=== PATIENT | male | born 1965 | race Caucasian/White ===

== ENCOUNTER 2020-05-18 05:12 | Emergency (ER) | payer MEDICAID ==
[2020-05-18] MEDS ORDERED: Sodium Chloride 0.9% 1,000 ML IV SCH (05:45)
[2020-05-18] MEDS ORDERED: Ondansetron 4 MG/2 ML SDV IVPUSH ONE (05:46)
[2020-05-18] MEDS ORDERED: HYDROmorphone 1 MG/ML Syringe IVPUSH ONE (05:46)
--- NOTE | 2020-05-18 05:54 | EDM.PDOC ---
<NolanrAndrea - Last Filed: 05/18/20 10:50> ED HPI GENERAL MEDICAL PROBLEM - General Chief Complaint: General Stated Complaint: LOWER ABD PAIN Time Seen by Provider: 05/18/20 05:49 - Related Data Allergies Allergy/AdvReac Type Severity Reaction Status Date / Time No Known Allergies Allergy Verified 05/18/20 05:20 Home Meds: Home Meds Gabapentin [Neurontin] 300 mg PO TID 05/18/20 [History] Omeprazole 20 mg PO ACBREAKFAST 05/18/20 [History] Departure - Departure Time of Disposition: 10:54 Disposition: Home, Self-Care 01 Condition: Fair Clinical Impression: Left testicular pain - Discharge Information Instructions: Testicular Self-Exam, Pain Without a Known Cause Referrals: PCP,None [Primary Care Provider] - Forms: ED Department Discharge Additional Instructions: Use hydrocodone as needed for pain control, please follow-up with your primary care in the next 2 to 3 days for reevaluation include consultation with urology, recommend follow-up ultrasound for further evaluation of the left testicle call or return to the emergency department worsening of symptoms - Assessment/Plan Plan: Took over care from Dr. Hunt at [address] pending results of CT scan, CT scan was unrevealing for stone reexamination the patient after pain medications still had extremely painful left testicle pain was worse on elevation underwent ultrasound of scrotal contents also unrevealing differential still broad. Provided further pain medication of fentanyl while in the ED. Assessment Acuity = acute Site and laterality = left testicular pain Etiology = unknown Manifestations = none Location of injury = Home Lab values = WBC elevated 12.5 consistent leukocytosis, potassium low at 2.9 consistent hypokalemia this was corrected both IV and orally, urinalysis unremarkable, CT and ultrasound unrevealing for etiology of pain Plan I did discuss options with him recommend follow-up with primary care for further evaluation with consultation to urology as well as repeat ultrasound I did provide him both a copy of his CT scan and ultrasound reports prescription written for hydrocodone 5/325 1 tab p.o. 3 times daily as needed total #10 This note was dictated using [employer] voice recognition software please call with any questions on syntax or grammar. <Hawa Hunt - Last Filed: 05/21/20 07:17> ED HPI GENERAL MEDICAL PROBLEM - General Source of Information: Reports: Patient History Limitations: Reports: No Limitations - History of Present Illness INITIAL COMMENTS - FREE TEXT/NARRATIVE: pt started having pain on Sunday nite on and off. It did start in the back and it has now radiated to the left testicle. He has not had a fever. He does not have a history of a kidney stone in the past. He states the pain tonight has gotten very severe. He has not vomited. Onset: Other (pain is alot worse tonight. ) Duration: Hour(s): Location: Reports: Abdomen, Back, Other ( radiates to the left groin) Left Scrotum Pain Score (Numeric/FACES): 9 Past Medical History HEENT History: Reports: Impaired Vision Gastrointestinal History: Reports: None Genitourinary History: Reports: None Musculoskeletal History: Reports: None - Past Surgical History Head Surgeries/Procedures: Reports: None HEENT Surgical History: Reports: None GI Surgical History: Reports: Appendectomy, Cholecystectomy Male Surgical History: Reports: Vasectomy Musculoskeletal Surgical History: Reports: Other (See Below) Other Musculoskeletal Surgeries/Procedures:: left ankle Dermatological Surgical History: Reports: None Social & Family History - Tobacco Use Smoking Status *Q: Current Every Day Smoker Years of Tobacco use: 40 Packs/Tins Daily: 1.5 Used Tobacco, but Quit: No Second Hand Smoke Exposure: No - Caffeine Use Caffeine Use: Reports: Coffee, Soda - Alcohol Use Days Per Week of Alcohol Use: 3 Number of Drinks Per Day: 2 Total Drinks Per Week: 6 - Recreational Drug Use Recreational Drug Use: No ED ROS GENERAL - Review of Systems Review Of Systems: See Below Constitutional: Reports: No Symptoms HEENT: Reports: No Symptoms Respiratory: Reports: No Symptoms Cardiovascular: Reports: No Symptoms Endocrine: Reports: No Symptoms GI/Abdominal: Reports: Abdominal Pain, Other ( radiates to the left groin. ) : Reports: Flank Pain Musculoskeletal: Reports: No Symptoms Skin: Reports: No Symptoms Neurological: Reports: No Symptoms Psychiatric: Reports: No Symptoms ED EXAM, GENERAL - Physical Exam Exam: See Below Free Text/Narrative:: pt arrived very uncomfortable in the left flank radiating to the ledft groin. No dysuria. Pain started Sunday nit but got very severe tonight. Exam Limited By: No Limitations General Appearance: Alert, Anxious, Severe Distress Ears: Normal TMs Nose: Normal Inspection Throat/Mouth: Normal Inspection Head: Atraumatic Neck: Normal Inspection Respiratory/Chest: No Respiratory Distress Cardiovascular: Regular Rate, Rhythm GI/Abdominal: Soft, Other ( tender low in the left groin. Pain does radiate to the left testicle. ) Rectal (Males) Exam: Deferred Back Exam: CVA Tenderness (L) Extremities: Normal Inspection Neurological: Alert, Oriented, Normal Cognition Psychiatric: Normal Affect Course - Vital Signs Last Recorded V/S: Last Vital Signs Temp 36.6 C 05/18/20 08:15 Pulse 63 05/18/20 08:15 Resp 16 05/18/20 08:15 BP 154/91 H 05/18/20 08:15 Pulse Ox 96 05/18/20 08:15 - Orders/Labs/Meds Labs: Laboratory Tests 05/18/20 05/18/20 05/18/20 Range/Units 05:43 05:50 05:50 WBC 12.5 H (4.5-11.0) K/uL RBC 4.85 (4.30-5.90) M/uL Hgb 13.2 (12.0-15.0) g/dL Hct 41.6 (40.0-54.0) % MCV 86 (80-98) fL MCH 27 (27-31) pg MCHC 32 (32-36) % Plt Count 227 (150-400) K/uL Neut % (Auto) 76 H (36-66) % Lymph % (Auto) 14 L (24-44) % Kleberg % (Auto) 10 H (2-6) % Eos % (Auto) 1 L (2-4) % Baso % (Auto) 0 (0-1) % Sodium 142 (140-148) mmol/L Potassium 2.9 L* (3.6-5.2) mmol/L Chloride 101 (100-108) mmol/L Carbon Dioxide 27 (21-32) mmol/L Anion Gap 16.9 H (5.0-14.0) mmol/L BUN 8 (7-18) mg/dL Creatinine 1.0 (0.8-1.3) mg/dL Est Cr Clr Drug Dosing 102.47 mL/min Estimated GFR (MDRD) > 60 (>60) Glucose 136 H (74-106) mg/dL Calcium 8.4 L (8.5-10.1) mg/dL Total Bilirubin 0.7 (0.2-1.0) mg/dL AST 15 (15-37) U/L ALT 18 (12-78) U/L Alkaline Phosphatase 79 (46-116) U/L Total Protein 7.3 (6.4-8.2) g/dL Albumin 3.8 (3.4-5.0) g/dL Globulin 3.5 (2.3-3.5) g/dL Albumin/Globulin Ratio 1.1 L (1.2-2.2) Urine Color Yellow (YELLOW) Urine Appearance Clear (CLEAR) Urine pH 7.0 (5.0-8.0) Ur Specific Butler 1.015 (1.008-1.030) Urine Protein Negative (NEGATIVE) mg/dL Urine Glucose (UA) Negative (NEGATIVE) mg/dL Urine Ketones Negative (NEGATIVE) mg/dL Urine Occult Blood Trace-intact H (NEGATIVE) Urine Nitrite Negative (NEGATIVE) Urine Bilirubin Negative (NEGATIVE) Urine Urobilinogen 0.2 (0.2-1.0) EU/dL Ur Leukocyte Esterase Negative (NEGATIVE) Urine RBC 0-5 (0-5) Urine WBC 0-5 (0-5) Ur Epithelial Cells Not seen Amorphous Sediment Not seen Urine Bacteria Rare Urine Mucus Not seen Meds: Medications Discontinued Medications Generic Name Dose Route Start Last Admin Trade Name Jaimeq PRN Reason Stop Dose Admin Fentanyl 50 mcg 05/18/20 10:41 Sublimaze IM 05/18/20 10:42 ONETIME ONE Fentanyl 50 mcg 05/18/20 10:49 05/18/20 10:59 Sublimaze IVPUSH 05/18/20 10:50 50 mcg ONETIME ONE Administration Hydromorphone HCl 1 mg 05/18/20 05:46 05/18/20 05:56 Dilaudid IVPUSH 05/18/20 05:47 1 mg ONETIME ONE Administration Sodium Chloride 1,000 mls @ 999 mls/hr 05/18/20 05:45 05/18/20 05:58 Normal Saline IV 999 mls/hr ASDIRECTED JUDI Administration Potassium Chloride 20 meq/ 100 mls @ 50 mls/hr 05/18/20 06:25 05/18/20 06:30 Premix IV 05/18/20 08:24 50 mls/hr ONETIME ONE Administration Ketorolac Tromethamine 30 mg 05/18/20 06:29 05/18/20 06:37 Toradol IVPUSH 05/18/20 06:30 30 mg ONETIME ONE Administration Ondansetron HCl 4 mg 05/18/20 05:46 05/18/20 05:57 Zofran IVPUSH 05/18/20 05:47 4 mg ONETIME ONE Administration Potassium Chloride 20 meq 05/18/20 06:25 05/18/20 06:30 Klor-Con M20 PO 05/18/20 06:26 20 meq ONETIME ONE Administration - Re-Assessments/Exams Free Text/Narrative Re-Assessment/Exam: 05/18/20 06:26 pt has a k of 2.9. his wbc is 12,000. 05/21/20 07:10 pt did not have blood in the urine. He did not have evidence of infection in the urine. 05/21/20 07:15 cat scan of the abdoman without contrasst does not show definite stones. He has some swollen lymph nodes. He had a Us of his testicles which did not show torsion or other definite abnmormalities, Sepsis Event Note (ED) - Evaluation Sepsis Screening Result: No Definite Risk
[2020-05-18] MEDS ORDERED: Potassium Chloride 20 MEQ Tab.ER PO ONE (06:25)
[2020-05-18] MEDS ORDERED: Potassium Chloride 20 MEQ in Premix Bag 1 BAG IV ONE (06:25)
[2020-05-18] MEDS ORDERED: Ketorolac 30 MG/ML SDV IVPUSH ONE (06:29)
--- NOTE | 2020-05-18 07:20 | CRLCT ---
INDICATION: Severe left flank and groin pain. TECHNIQUE: CT of the abdomen and pelvis without intravenous contrast. Coronal and sagittal reconstructions. COMPARISON: None. FINDINGS: There is enlargement of the left hepatic lobe which can be seen with chronic parenchymal disease. Cholecystectomy. There are dropped gallstones in a migrated surgical clip along the inferior aspect of the liver. No biliary dilation. Splenule. The unenhanced spleen, pancreas, and adrenal glands are normal in appearance. No urinary calculi. Small left renal cysts. No hydronephrosis or ureteral dilation. Mild diffuse bladder wall thickening could be due to underdistention, inflammation, or chronic outlet obstruction. Mildly enlarged prostate. Small bilateral fat containing inguinal hernias. No bowel dilation. Probable appendectomy. No intraperitoneal free air or fluid. The bones are unremarkable. Aortoiliac vascular calcifications. Focal fusiform dilation of the infrarenal abdominal aorta which measures 2.8 cm in transverse dimension. There is surrounding hazy fat stranding and multiple small periaortic lymph nodes (series 2, image 108 and series 3, image 90). Findings could represent aortitis, however evaluation is limited by lack of IV contrast. 4 mm noncalcified pulmonary nodule right middle lobe (series 2, image 13). 3 mm noncalcified pulmonary nodule in the anterior left lower lobe along the fissure (image 6). 3 mm noncalcified pleural-based pulmonary nodule in the lingula (image 4). The lung bases are otherwise clear. IMPRESSION: 1. 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 Findings could represent aortitis, however evaluation is limited by lack of IV contrast. 2. No urinary calculi or evidence of obstruction. 3. Mild diffuse bladder wall thickening could be due to underdistention, inflammation, or chronic outlet obstruction. Correlate with urinalysis. 4. Enlargement of the left hepatic lobe can be seen with chronic parenchymal disease. 5. Dropped gallstones. 6. Few small noncalcified pulmonary nodules in the lung bases. These could be further characterized with nonemergent CT of the chest if clinically indicated. Please note that all CT scans at this facility use dose modulation, iterative reconstruction, and/or weight-based dosing when appropriate to reduce radiation dose to as low as reasonably achievable. Dictated by Rajwinder Kraus MD @ May 18 2020 7:06AM Signed by Dr. Rajwinder Kraus @ May 18 2020 7:18AM
--- NOTE | 2020-05-18 10:24 | US ---
Scrotum and Contents, Scrotal Duplex Ltd CLINICAL HISTORY: Left testicular pain FINDINGS: Right testicle measures 4.2 x 3.1 x 2.4 cm. There is a normal flow pattern. There is some stranding through the testicular parenchyma. This is felt to represent a portion of the rete testes. There is a small hydrocele. Epididymis has a normal contour measuring 1.1 x 1.1 x 1.2 cm. There is a normal flow pattern Left testicle measures 4.1 x 2.6 x 2.1 cm. The parenchyma is mildly heterogeneous without focal mass. There is a normal pattern of flow. There is a small hydrocele. Epididymis measures 1.5 x 0.9 x 2.0 cm. Has a normal echotexture and flow pattern. There is a small collection of vessels measuring approximately 3 mm in diameter felt to represent a small varicocele. IMPRESSION: Mildly heterogeneous left testicular echotexture is of uncertain etiology. Infiltrating process is felt unlikely due to the lack of increased flow. Inflammation is also felt less likely due to normal flow. Previous ischemic episode is a consideration though again flow is normal making this less likely. This may represent anatomic variant Small varicocele on the left Small bilateral hydroceles Normal-appearing epididymides bilaterally Urologic consult should be considered. Short-term follow-up is recommended whether symptomatology persists or not.
[2020-05-18] MEDS ORDERED: fentaNYL 100 MCG/2 ML SDV IM ONE (10:41)
[2020-05-18] MEDS ORDERED: fentaNYL 100 MCG/2 ML SDV IVPUSH ONE (10:49)
== END 2020-05-18 11:11 | disposition home or self-care (01) ==
LOC: JP.ED 05:12
DX: N50.812 Left testicular pain (principal); F17.210 Nicotine dependence, cigarettes, uncomplicated; Z90.49 Acquired absence of other specified parts of digestive tract; Z87.442 Personal history of urinary calculi
CPT/HCPCS: 36415; 74176; 76870; 80053; 81001; 85025; 93976; 96361; 96365; 96366; 96375; 99284; A9270; J1170; J1885; J2405; J3010; J3480; J7030